=== PATIENT | male | born 1970 | race Caucasian/White ===

== ENCOUNTER 2020-03-04 23:20 | Emergency (ER) | payer OTHER ==
[~2020-03-04] VITALS: Ht 175.3 cm; Wt 93.0 kg
--- NOTE | 2020-03-05 00:01 | Emergency Department Note ---
History of Present Illnes History of Present Illness Chief Complaint: Extremity Trauma/Pain History of Present Illness This is a 49 year old male WITH C/O LEFT SHOULDER PAIN AFTER HE CAUGHT HIMSELF FROM FALLING OFF A RAILCAR. STATES CANT LIFT HIS LEFT ARM AND HAS SHOULDER PAIN. 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 Any updates have been documented here. Past Medical History Recent Fever: No Clinical Suspicion of Infectio: No New/Unexplained Change in Ment: No Social History Smoking Cessation: Never Smoker Alcohol Use: Occasional Any Illegal Drug Use: No Family History Family history of heart diseas: No Review of Systems Review of Systems Constitutional: Reports no symptoms EENTM: Reports no symptoms Cardiovascular: Reports no symptoms Respiratory: Reports no symptoms Gastrointestinal: Reports no symptoms Genitourinary: Reports no symptoms Musculoskeletal: Reports as per HPI Integumentary: Reports no symptoms Neurological: Reports no symptoms Psychological: Reports no symptoms Endocrine: Reports no symptoms Hematological/Lymphatic: Reports no symptoms Physical Exam Related Data Triage Vital Signs Vital Signs Date Time Temp Pulse Resp B/P (MAP) Pulse Ox O2 Delivery O2 Flow Rate FiO2 03/04/20 23:32 98.8 89 20 156/94 98 Room Air Vital signs reviewed: Yes Physical Exam CONSTITUTIONAL Constitutional: Present well-developed, Present well-nourished; Absent distressed HENT HENT: Present normocephalic, Present atraumatic, Present oropharynx cl ear/moist, Present nose normal HENT L/R: Present left ext ear normal, Present right ext ear normal EYES Eyes: Reports PERRL, Reports conjunctivae normal NECK Neck: Present ROM normal PULMONARY Pulmonary: Present effort normal, Present breath sounds normal CARDIOVASCULAR Cardiovascular: Present regular rhythm, Present heart sounds normal, Present capillary refill normal, Present normal rate GASTROINTESTINAL Abdominal: Present soft, Present nontender, Present bowel sounds normal GENITOURINARY Genitourinary: Present exam deferred SKIN Skin: Present warm, Present dry MUSCULOSKELETAL LEFT SHOULDER TENDER TO PALPATION, PAIN WITH ROM PT CAN NO ABDUCT LEFT SHOULDER. PULSED STRONG AND INTACT FULL ROM AND STRENGTH LEFT ELBOW, WRIST AND HAND NEUROLOGICAL Neurological: Present alert, Present oriented x 3, Present no gross motor or sensory deficits PSYCHOLOGICAL Psychological: Present mood/affect normal, Present judgement normal Procedures Orthopedic Joint Reduction Joint: Joint #1 Time out performed: Yes Side: left Joint reduction location: shoulder Analgesia: other (FENTANYL 100 MCG IV) Shoulder technique used (if ap: traction/counter-traction Post-reduction neuor exam: intact Post-reduction vascular exam: intact Post-reduction xrays obtained: Yes Xray results: reduced Splint applied: Yes Patient tolerated procedure: well Procedural Sedation Pre-sedation evaluation: PT ALERT AND ORIENTED TIMES THREE HEART RATE NORMAL, NO RESPIRATORY DISTRESS Time of last PO intake: 20:00 IV Etomidate dose (mg): 10 Patient tolerated procedure: well Complications: none Assessment & Plan Medical Decision Making MDM PT WITH LEFT SHOULDER PAIN AND INABILITY TO ABDUCT LEFT ARM AFTER INJURY AT WORK, LEFT SHOULDER XRAY ORDERED TO EVAL FOR FRACTURE, DISLOCATION Assessment & Plan Final Impression: (1) Dislocation of left shoulder joint Last Vital Signs Date Time Temp Pulse Resp B/P (MAP) Pulse Ox O2 Delivery O2 Flow Rate FiO2 03/04/20 23:32 98.8 89 20 156/94 98 Room Air ANT RIVERS MD Mar 05, 2020 00:01
--- OUTSIDE RECORDS SUMMARY | 2020-03-05 00:22 | XMS REPORT | Clinical Summary ---
Author Author [facility] Organization [facility] Address Unknown Phone Unavailable Care Team Providers Care Packaging Tech Name Role Phone PCP Unavailable Allergies Not on File Medications Not on file Active Problems Not on file Social History Date Tobacco Use Types Packs/Day Years Used Never Assessed Sex Assigned at Date Recorded Not on file Last Filed Vital Signs Not on file Plan of Treatment Not on file Results Not on fileafter 03/05/2019
--- NOTE | 2020-03-05 00:58 | Diagnostic Imaging Report ---
X-ray left shoulder. 2 views HISTORY: Pain. COMPARISON: None available. FINDINGS: Anterior shoulder dislocation with probable Hill-Sachs impaction fracture. Limited assessment of the glenoid. IMPRESSION: Anterior shoulder dislocation with probable associated Hill-Sachs impaction fracture. Limited assessment of the glenoid. Attention on reduction films. Signed by: Yoandy Goyal MD on 03/05/2020 12:55 AM
[2020-03-05] MEDS ORDERED: ETOMIDATE 2 MG/ML 10 ML INJ IV STA (01:15)
[2020-03-05] MEDS ORDERED: FENTANYL CITRATE/PF 100MCG/2 ML INJ IV ONE (01:15)
[2020-03-05] MEDS ORDERED: ONDANSETRON HCL INJ 2MG/ML 2ML 2 MG/ML VIAL IV STA (01:24)
[2020-03-05 01:55] VITALS: BP 110/55
--- NOTE | 2020-03-05 02:37 | Diagnostic Imaging Report ---
X-ray one view of the left shoulder. HISTORY: Pain. COMPARISON: None available. FINDINGS: Evaluation is limited due to single view. Improved alignment of the left anterior shoulder dislocation. IMPRESSION: Improved alignment of the left anterior shoulder dislocation. Single view and positioning limits evaluation for fracture. Signed by: Yoandy Goyal MD on 03/05/2020 2:33 AM
== END 2020-03-05 02:25 | disposition home or self-care (01) ==
LOC: ER 23:45
DX: M25.512 Pain in left shoulder (principal); S43.005A Unspecified dislocation of left shoulder joint, initial encounter; X50.1XXA Overexertion from prolonged static or awkward postures, initial encounter; Y99.0 Civilian activity done for income or pay
CPT/HCPCS: 73020; 73030; 99283; J2405; J3010

== ENCOUNTER → 2022-06-13 | Day surgery (SDC) | payer OTHER ==
[~2022-06-13] MED LIST: ACETAMINOPHEN/CODEINE 300MG - 30MG TAB ONE; DESFLURANE 240 ML BTL INH ONE; DEXAMETHASONE SOD PHOS INJ 4 MG/ML SDV ONE; EPHEDRINE SULFATE INJ 50 MG/ML VIAL ONE; EPINEPHRINE HCL 1:1000 1ML 1 MG/ML AMP ONE; FENTANYL CITRATE/PF 100MCG/2 ML INJ ONE; LIDOCAINE HCL 2% LOCAL INJ 5 ML SDV VIAL INJ ONE; LIDOCAINE HCL/EPINEPHRINE/PF 10 ML VIAL ONE; MIDAZOLAM HCL 2 MG/2 ML VIAL ONE; ONDANSETRON HCL INJ 2MG/ML 2ML 2 MG/ML VIAL ONE; PHENYLEPHRINE HCL 1% 10 MG/ML VIAL ONE; POVIDONE IODINE 0.05% 0.05 % ML PO ONE; PROPOFOL IV EMULSION 10 MG/ML 20 ML VIAL ONE; SUCCINYLCHOLINE CHLORIDE 20 MG/ML 10ML VIAL ONE
[2022-06-13 10:35] VITALS: BP 138/96
== END | disposition home or self-care (01) ==
LOC: OR 06:35
PROVIDERS: ATTEND Otolaryngology Otolaryngology/Facial Plastic Surgery
DX: J32.2 Chronic ethmoidal sinusitis (principal); J34.2 Deviated nasal septum; J34.89 Other specified disorders of nose and nasal sinuses; G47.33 Obstructive sleep apnea (adult) (pediatric); Z01.810 Encounter for preprocedural cardiovascular examination
CPT/HCPCS: 30520; 31254; 88304; 88311; 93005; J0171; J0330; J1100; J2001; J2250; J2370; J2405; J2704; J3010; 88300